=== PATIENT | female | born 1975 | race Caucasian/White ===

== ENCOUNTER 2019-03-15 02:32 | Emergency (ER) | payer MEDICAID ==
[~2019-03-15] VITALS: Ht 165.1 cm; Wt 59.0 kg
--- NOTE | 2019-03-15 02:54 | NUR ---
BIBIS FOR C/O R MID BACK PAIN AND DYSURIA X3 DAYS. URINE COLLECTED .
[2019-03-15] MEDS ORDERED: KETOROLAC TROMETHAMINE INJ 60 MG/2 ML VIAL IM ONE (03:00)
[2019-03-15 03:05] LABS: APPEARANCE,URINE SL CLOUDY (CLEAR); BILIRUBIN,URINE NEGATIVE (NEGATIVE); BLOOD, URINE LARGE Ery/uL (NEGATIVE); COLOR,URINE YELLOW (YELLOW); KETONES,URINE NEGATIVE (NEGATIVE); LEUKOCYTE ESTERASE ,URINE SMALL (NEGATIVE); NITRITE, URINE POSITIVE (NEGATIVE); PH,URINE 7.5 (5.0-8.0); PROTEIN,URINE 30 mg/dl (NEGATIVE); UGLUCOSE NEGATIVE (NEGATIVE)
[2019-03-15] MEDS ORDERED: KETOROLAC TROMETHAMINE INJ 30 MG/ML VIAL ONE (03:16)
[2019-03-15] MEDS ORDERED: NITROFURANTOIN/NITROFURAN MAC 100 MG CAPSULE ONE (03:28)
[2019-03-15] MEDS ORDERED: NITROFURANTOIN/NITROFURAN MAC 100 MG CAPSULE PO ONE (03:30)
[2019-03-15 03:33] VITALS: BP 115/74
--- NOTE | 2019-03-15 03:33 | NUR ---
Patient discharged to home in stable condition. Written and verbal after care instructions given. Patient verbalizes understanding of instruction.
[2019-03-15 04:15] LABS: BACTERIA,URINE Few /HPF (None Seen); RBC,URINE TOO NUMEROUS TO COUN /HPF (0-2); SQUAMOUS EPITHELIAL CELL,UR Few /HPF (None Seen)
== END 2019-03-15 03:33 | disposition home or self-care (01) ==
LOC: ER 02:35
DX: N39.0 Urinary tract infection, site not specified (principal); G47.00 Insomnia, unspecified
CPT/HCPCS: 81001; 84703; 87077; 87086; 87186; 96372; 99283; J1885; 81000-TC

== ENCOUNTER 2019-03-27 11:52 | Emergency (ER) | payer MEDICAID ==
[~2019-03-27] VITALS: Ht 165.1 cm; Wt 58.5 kg
[2019-03-27 12:02] VITALS: BP 117/79
--- NOTE | 2019-03-27 14:15 | NUR ---
Patient discharged to home in stable condition. Written and verbal after care instructions given. Patient verbalizes understanding of instruction.
== END 2019-03-27 15:10 | disposition home or self-care (01) ==
LOC: ER 11:54
DX: T19.2XXA Foreign body in vulva and vagina, initial encounter (principal); G47.00 Insomnia, unspecified; W45.8XXA Other foreign body or object entering through skin, initial encounter; Y93.89 Activity, other specified; Y92.89 Other specified places as the place of occurrence of the external cause; Y99.8 Other external cause status
CPT/HCPCS: 76856-TC

== ENCOUNTER 2019-05-03 23:54 | Emergency (ER) | payer MEDICAID ==
[~2019-05-03] VITALS: Ht 154.9 cm; Wt 59.0 kg
[2019-05-04] MEDS ORDERED: ACETAMINOPHEN ES 500 MG TABLET ONE (00:37)
--- NOTE | 2019-05-04 00:46 | NUR ---
X.RAY TECH AT THE BED SIDE. PT SIGNED WAIVER. FLU SWAB COLLECTED AND SENT TO THE LAB
[2019-05-04] MEDS ORDERED: ACETAMINOPHEN 325 MG TABLET PO ONE (01:00)
--- NOTE | 2019-05-04 02:25 | NUR ---
Patient discharged to home in stable condition. Rx and Written and verbal after care instructions given. Patient verbalizes understanding of instruction.
[2019-05-04 02:52] VITALS: BP 111/70
== END 2019-05-04 02:25 | disposition home or self-care (01) ==
LOC: ER 23:55
DX: J06.9 Acute upper respiratory infection, unspecified (principal); G47.00 Insomnia, unspecified
CPT/HCPCS: 71045-TC